=== PATIENT | female | born 1980 | race Two or more races ===

== ENCOUNTER 2019-08-18 18:49 | Emergency (ER) | payer SELFPAY ==
[~2019-08-18] VITALS: Ht 134.6 cm; Wt 75.0 kg
[2019-08-18 19:07] VITALS: BP 119/72
[2019-08-18] MEDS: SMZ/TMP 800/160MG TABLET. PO ONE (19:30)
[2019-08-18] MEDS ORDERED: HYDR-3164 PO (19:35)
[2019-08-18] MEDS ORDERED: SULF1TAB24 PO (19:35)
--- NOTE | 2019-08-18 19:35 | PHYS DOC ---
Past Medical History Past Medical History: No Pertinent History Past Surgical History: Appendectomy Smoking Status: Never Smoker Alcohol Use: None Adult General Chief Complaint Chief Complaint: TOE PROBLEM HPI HPI Patient is a 39 year old female with no significant medical history who presents to the ED today with an infected ingrown right great toe. Patient reports symptoms began last week, she unfortunately attempted to remove her right great toenail on Wednesday last week and was unsuccessful. She states after that she has noted drainage and redness to the right great toe. Denies any fever. Review of Systems Review of Systems Constitutional: Denies fever or chills [] Musculoskeletal: Denies back pain or joint pain [] Integument: Reports right great toe infection Neurologic: Denies headache, focal weakness or sensory changes [] All other systems were reviewed and found to be within normal limits, except as documented in this note. Physical Exam Physical Exam Constitutional: Well developed, well nourished, no acute distress, non-toxic appearance. [] Skin: Right great toe distal end with mild swelling and erythema around the nailbed, there is an open wound on the tip of the right great toe lateral aspect with a dry blood to the region. The toenail is warm tender to touch. No fluctuance noted. +2 right pedal pulse. Back: No tenderness, no CVA tenderness. [] Extremities: No tenderness, no cyanosis, no clubbing, ROM intact, no edema. [] Neurologic: Alert and oriented X 3, normal motor function, normal sensory function, no focal deficits noted. [] Psychologic: Affect normal, judgement normal, mood normal. [] Current Patient Data Vital Signs Vital Signs Date Time Temp Pulse Resp B/P (MAP) Pulse Ox O2 Delivery O2 Flow Rate FiO2 08/18/19 19:07 99.1 88 16 119/72 (88) 100 Room Air 99.1 EKG EKG [] Radiology/Procedures Radiology/Procedures [] Course & Med Decision Making Course & Med Decision Making Pertinent Labs and Imaging studies reviewed. (See chart for details) This is a 39-year-old female patient presenting to the ED today with infected ingrown right great toe. Tetanus up-to-date, discharged on Bactrim. Wound care instructions and return precautions provided. Provided residency director for follow- up as an outpatient. Dragon Disclaimer Dragon Disclaimer This electronic medical record was generated, in whole or in part, using a voice recognition dictation system. Departure Departure Impression: Primary Impression: Ingrown toenail without infection Disposition: HOME, SELF-CARE Condition: STABLE Referrals: NO PCP (PCP) APRYL PONCE DPM Call his office and set up a follow-up appointment in a week Patient Instructions: Infected Ingrown Toenail Additional Instructions: You have an infected ingrown toenail. Please soak the toenail in warm water with Epson salt and the provided Betadine twice a day. Please avoid digging into the toenail. Take the prescribed antibiotics until completed and follow-up with the residency director provided in the next 2 weeks. Scripts Hydrocodone/Apap 5-325 (NORCO 5-325 TABLET) 1 Each Tablet 1 TAB PO Q6HRS, #23 TAB Prov: STEVE BARRON APRN 08/18/19 Sulfamethoxazole/Trimethoprim (BACTRIM DS TABLET) 1 Each Tablet 1 TAB PO BID for 10 Days, #20 TAB 0 Refills Prov: STEVE BARRON APRN 08/18/19 STEVE BARRON APRN Aug 18, 2019 19:35
[2019-08-18] MEDS ORDERED: SMZ/TMP 800/160MG TABLET. PO ONE (20:04)
[2019-08-18] MEDS ORDERED: NAPROXEN 500 MG TABLET ONE (20:04)
[2019-08-18] MEDS ORDERED: HYDROcodone/APAP 5/325MG 1 TAB TABLET ONE ×2 (20:05→20:09)
[2019-08-18] MEDS: NAPROXEN 500 MG TABLET PO STA (20:07)
[2019-08-18] MEDS: HYDROcodone/APAP 5/325MG 1 TAB TABLET PO ONE (20:07)
== END 2019-08-18 20:14 | disposition home or self-care (01) ==
LOC: ER 18:49
DX: L60.0 Ingrowing nail (principal); L53.9 Erythematous condition, unspecified; R60.0 Localized edema; Z90.89 Acquired absence of other organs
CPT/HCPCS: 99284